=== PATIENT | female | born 1970 | race Caucasian/White ===

== ENCOUNTER 2019-05-03 15:11 | Emergency (ER) | payer OTHER ==
[2019-05-03 15:29] VITALS: BP 105/72; PULSE 95; TEMP 98; BMI 23.4
--- NOTE | 2019-05-03 15:30 | PDOC ---
History of Present Illness - General Chief Complaint: Abscess Boil Stated Complaint: LT LEG BOIL - History of Present Illness Initial Comments: 05/03/19 16:12 48 y/o/f here for an abscess on her left gluteal crease for the last 3 days. She states it stated as a small pimple and has gotten worse. On Saturday she squeezed some watery discharge out of it. She states the bump has gotten bigger and more painful since then. She is having difficulty sitting due to pain. She has not taken any medication for the pain and has not tried warm compresses. She denies any fever, chills, N/V/D, dysuria, CP, SOB, or other any other concerns. She states she gets abscesses with infections often, last time she had an abscess was 4 months ago when she was in [place], she was given antibiotics at that time but does not remember the name. PMHx: DM SHx: removal of right ovary 30+ years ago. Social: 1-2 cigarettes daily. Denies alcohol use. Past History - Past Medical History Allergies/Adverse Reactions: Allergies Allergy/AdvReac Type Severity Reaction Status Date / Time No Known Allergies Allergy Verified 05/03/19 15:26 Home Medications: Ambulatory Orders Sulfamethoxazole/Trimethoprim [Bactrim Ds -] 1 tab PO BID #10 tablet 05/03/19 - Suicide/Smoking/Psychosocial Hx Smoking History: Current some day smoker Number of Cigarettes Smoked Daily: 2 Information on smoking cessation initiated: No Hx Alcohol Use: No Drug/Substance Use Hx: No Review of Systems - Review of Systems Able to Perform ROS?: Yes Constitutional: No: Chills, Fever HEENTM: No: Nose Congestion, Difficulty Swallowing Respiratory: No: Cough, Shortness of Breath Cardiac (ROS): No: Chest Pain ABD/GI: No: Diarrhea, Nausea, Vomiting : No: Dysuria, Hematuria Musculoskeletal: No: Back Pain, Joint Pain Integumentary: Yes: Other (abscess in left gluteal crease) Neurological: No: Headache Endocrine: No: Excessive Sweating *Physical Exam - Vital Signs Last Vital Signs Temp Pulse Resp BP Pulse Ox 98 F 95 H 16 105/72 99 05/03/19 15:26 05/03/19 15:26 05/03/19 15:26 05/03/19 15:26 05/03/19 15:26 - Physical Exam General Appearance: Yes: Nourished, Appropriately Dressed HEENT: positive: EOMI, Normal Voice, Symmetrical Neck: positive: Supple. negative: Lymphadenopathy (R), Lymphadenopathy (L) Respiratory/Chest: positive: Lungs Clear, Normal Breath Sounds Cardiovascular: positive: Regular Rhythm, Regular Rate, S1, S2 Gastrointestinal/Abdominal: positive: Normal Bowel Sounds, Soft Extremity: positive: Normal Capillary Refill. negative: Swelling Integumentary: positive: Normal Color, Other (multiple scars from healed abscesses on extremities. Indurated abscess in left gluteal cleft with surrounding 4x3cm erythema and warmth. ) Neurologic: positive: Alert, Normal Mood/Affect, Motor Strength 5/5 Procedures - Incision and Drainage I&D Site: Left: Buttock Anesthesia: 1% Lidocaine w/ Epi Volume(ml): 3 Blade Size: 11 Attempts: 1 Iodinated Packin/ in Complications: none Dressing: Yes Medical Decision Making - Medical Decision Making 05/03/19 17:11 48 y/o/f here for an abscess on her left gluteal crease for the last 3 days. She states it stated as a small pimple and has gotten worse. On Saturday she squeezed some watery discharge out of it. On exam there is an indurated abscess in the left gluteal cleft with surrounding 4x3cm erythema and warmth. I&D performed on abscess with minimal purulent drainage. Abscess packed. Patient given prescription for Bactrim DS. Patient told to have packing removed in 48 hours and to return here if not able to contact her PMD. *DC/Admit/Observation/Transfer Diagnosis at time of Disposition: Cellulitis and abscess of buttock - Discharge Dispostion Disposition: HOME Condition at time of disposition: Good - Prescriptions Prescriptions: Sulfamethoxazole/Trimethoprim [Bactrim Ds -] 1 tab PO BID #10 tablet - Referrals Referrals: Machelle Kimball MD [Primary Care Provider] - - Patient Instructions Printed Discharge Instructions: DI for Incision and Drainage of a Skin Abscess Additional Instructions: If you have worsening pain, redness, fever, increasing redness or other concerns return to the ER. You need to have your packing removed in 48 hours. You can return to the ER to have the packing removed or speak with your primary care doctor if they can remove the packing. - Post Discharge Activity
--- NOTE | 2019-05-03 15:55 | PDOC ---
Attending Attestation - Resident Resident Name: SannacherieKyaramegan S - ED Attending Attestation I have performed the following: I have examined & evaluated the patient, The case was reviewed & discussed with the resident, I agree w/resident's findings & plan, Exceptions are as noted - HPI HPI: 05/03/19 15:52 48y F presenst with pain to her L gluteal cleft for the past three days denies any fever/chills, n/v, watery discharge now more painful and larger - Physicial Exam PE: 05/03/19 16:09 exam: approx [id number] erythemads/indurated mass in the L gluteal fold, bedside US noted for irregular fluid collection - Medical Decision Making 05/03/19 16:10 ap - abcess with surrounding cellulitis 05/03/19 16:56 ID'd with output approx 2cc of blod/pus area packed as it is an area that has high risk of closing will give pt rx for bactrim due to suspicion of MRSA return precautions were discussed return for wound check Procedures - Consent Consent obtained: Verbal - Incision and Drainage I&D Site: Left: Leg Anesthesia: 1% Lidocaine Volume(ml): 2 (2ml blood/pus) Blade Size: 11 Attempts: 1 Iodinated Packin in Plain Packing: Yes Complications: none Dressing: Yes
== END 2019-05-03 17:32 | disposition home or self-care (01) ==
LOC: JER 15:11
PROC: 0J990ZZ Drainage of Buttock Subcutaneous Tissue and Fascia, Open Approach (ICD-10-PCS; principal; 2019-05-03)
DX: L03.317 Cellulitis of buttock (principal); L02.31 Cutaneous abscess of buttock
CPT/HCPCS: 10160; 99281-25

== ENCOUNTER 2019-05-05 15:24 | Emergency (ER) | payer OTHER | END 2019-05-05 16:45 | disposition home or self-care (01) | LOC: JERFT 15:24 ==